=== PATIENT | male | born 1975 ===

== ENCOUNTER 2023-04-09 14:54 | Inpatient (IN) | payer SELFPAY ==
[~2023-04-09] VITALS: Ht 170.2 cm; Wt 82.6 kg
[2023-04-09] MEDS ORDERED: OLANZapine 5 MG RAPDIS TABLET PO PRN (16:15)
[2023-04-09] MEDS ORDERED: ZOLPIDEM TARTRATE 10 MG TABLET PO PRN (16:15)
[2023-04-09] MEDS ORDERED: LORazepam 2 MG TABLET PO PRN (16:15)
[2023-04-09 18:20] LABS: LYMPHOCYTES # (AUTO) 0.4 K/uL (1.0-4.8); MONOCYTES # (AUTO) 0.2 K/uL (0.1-1.0); NEUTROPHILS # (AUTO) 2.6 K/uL (1.8-7.7); WHITE BLOOD COUNT (AUTO) 3.3 K/uL (4.5-11.0)
[2023-04-09 18:26] LABS: EOSINOPHILS % (AUTO) 0.9 % (1.0-6.0); HEMOGLOBIN 11.6 g/dL (13.5-17.5); LYMPHOCYTES % (AUTO) 10.9 % (22.0-44.0); MEAN CORPUSCULAR HEMOGLOBIN 26.8 pg (26.0-34.0); MEAN CORPUSCULAR VOLUME 81 fL (80-100); MONOCYTES % (AUTO) 6.6 % (2.0-9.0); NEUTROPHILS % (AUTO) 80.6 % (40.0-70.0); RED BLOOD CELL COUNT(AUTO) 4.31 MIL/uL (4.50-5.90); RED CELL DISTRIBUTION WIDTH 20.6 % (11.5-14.5)
[2023-04-09 18:29] LABS: ANION GAP 11 mmol/L (8-16); CARBON DIOXIDE 22 mmol/L (22-29); CHLORIDE 107 mmol/L (98-107); CREATININE 1.03 mg/dL (0.60-1.30); GLOMERULAR FILTR. RATE CALC > 60 mL/min (>60); GLUCOSE,RANDOM 176 mg/dL (70-110); POTASSIUM 3.7 mmol/L (3.5-5.1); SODIUM SERUM 140 mmol/L (136-145); UREA NITROGEN, BLOOD 14 mg/dL (7-18)
[2023-04-09 18:35] LABS: ALANINE AMINOTRANSFERASE 73 U/L (12-78); ALBUMIN 3.7 g/dL (3.4-5.0); ALCOHOL, BLOOD (SERUM) < 3 mg/dL (0-10); ALKALINE PHOSPHATASE 206 U/L (46-116); ASPARTATE AMINOTRANSFERASE 94 U/L (15-37); TOTAL PROTEIN, SERUM 8.2 g/dL (6.4-8.2)
[2023-04-09 18:48] LABS: PLATELET COUNT (AUTO) 89 K/uL (150-450)
[2023-04-09 19:04] LABS: COVID AG,FIA SOURCE NASAL SWAB
[2023-04-09] MEDS: TraMADol HCL 50 MG TABLET PO ONE ×2 (19:04→19:40)
[2023-04-09 19:12] LABS: APPEARANCE,URINE CLEAR (CLEAR); BILIRUBIN,URINE NEGATIVE (NEGATIVE); COLOR,URINE YELLOW (YELLOW); GLUCOSE, URINE (UA) 70-100 mg/dL (NEGATIVE); KETONES,URINE NEGATIVE (NEGATIVE); LEUKOCYTE ESTERASE ,URINE NEGATIVE (NEGATIVE); NITRATE,URINE NEGATIVE (NEGATIVE); OCCULT BLOOD,URINE MODERATE (NEGATIVE); PROTEIN,URINE 100-200,SEE CONFIRM mg/dL (NEGATIVE); SPECIFIC GRAVITIY, URINE 1.026 (1.003-1.030)
[2023-04-09 19:17] LABS: ALCOHOL, URINE DRUG SCREEN NEGATIVE (NEGATIVE); AMPHET/METH SCREEN,URINE POSITIVE (NEGATIVE); BARBITURATE SCREEN, URINE NEGATIVE (NEGATIVE); BENZODIAZEPINES SCREEN,URINE NEGATIVE (NEGATIVE); CANNABINOID SCREEN,URINE NEGATIVE (NEGATIVE); COCAINE SCREEN,URINE NEGATIVE (NEGATIVE); METHADONE SCREEN, URINE NEGATIVE (NEGATIVE); OPIATE SCREEN,URINE NEGATIVE (NEGATIVE); PHENCYCLIDINE SCREEN,URINE NEGATIVE (NEGATIVE)
[2023-04-09 19:25] LABS: SULFOSALICYLIC ACID,URINE 1+ (Negative)
[2023-04-09 19:26] LABS: BACTERIA,URINE None Seen /HPF (None Seen); SQUAMOUS EPITHELIAL CELL,UR Rare /LPF (None Seen); WBC,URINE 0-2 /HPF (0-5)
[2023-04-09 19:34] LABS: SARS-COV2 (COVID) ANTIGEN,FIA Negative (Negative)
[2023-04-10 02:00] VITALS: BP 136/88; PULSE 98; RESP 18; TEMP 97.9
[2023-04-10] MEDS ORDERED: ACETAMINOPHEN 325 MG TABLET PO PRN (02:00)
[2023-04-10] MEDS ORDERED: MAG HYDROX/ALUMINUM HYD/SIMETH ES 30 ML SUSPENSION UDCUP PO PRN (02:00)
[2023-04-10] MEDS ORDERED: TUBERCULIN, PURIFIED PROTEIN DERIVATIVE 5 TU/0.1 ML SYRINGE ID ONE (02:00)
[2023-04-10] MEDS ORDERED: PROMETHAZINE HCL 25 MG TABLET PO PRN (02:00)
[2023-04-10] MEDS ORDERED: HydrOXYzine PAMOATE 50 MG CAPSULE PO PRN ×2 (02:00)
[2023-04-10] MEDS ORDERED: GuaiFENesin/D-METHORPHAN [SUGAR-FREE] 200-20MG/10 ML SYRUP UDCUP PO PRN (02:00)
[2023-04-10] MEDS ORDERED: MAGNESIUM HYDROXIDE SUSPENSION 30 ML UDCUP PO PRN (02:00)
[2023-04-10] MEDS ORDERED: LORazepam 2 MG TABLET PO PRN (02:00)
[2023-04-10] MEDS ORDERED: LOPERAMIDE HCL 2 MG CAPSULE PO PRN (02:00)
[2023-04-10 02:13] VITALS: BP 136/88; PULSE 98; RESP 18; TEMP 97.9
[2023-04-10 03:00] VITALS: BP_SYST 114; BP_SYST 128; BP_DIAS 61; BP_DIAS 85; PULSE 84; PULSE 90; RESP 17; RESP 18; TEMP 98.2; TEMP 98.4; O2SAT 97; O2SAT 98
[2023-04-10 08:31] VITALS: BP 104/60; PULSE 90; RESP 18; TEMP 98.1; O2SAT 97
[2023-04-10] MEDS ORDERED: CYANOCOBALAMIN 1,000 MCG/ML VIAL IM ONE (09:00)
[2023-04-10] MEDS: FLUoxetine HCL 20 MG CAPSULE PO SCH (09:09)
[2023-04-10] MEDS: MULTIVITAMINS WITH MINERALS, THERAPEUTIC TABLET PO SCH (09:10)
[2023-04-10] MEDS: THIAMINE 100 MG TABLET PO SCH ×2 (09:10→16:11)
[2023-04-10] MEDS: OMEGA-3/DHA/EPA/FISH OIL 1,000 MG CAPSULE PO SCH (09:10)
[2023-04-10] MEDS: NALTREXONE HCL 50 MG TABLET PO SCH (09:10)
[2023-04-10] MEDS: FOLIC ACID 1 MG TABLET PO SCH (09:10)
[2023-04-10 21:03] VITALS: BP 116/70; PULSE 92; RESP 18; TEMP 97.7; O2SAT 97
[2023-04-10] MEDS: MELATONIN 5 MG TABLET PO SCH (21:45)
[2023-04-11] MEDS ORDERED: LORazepam 2 MG TABLET PO PRN (07:00)
[2023-04-11 08:00] LABS: HEMOGLOBIN A1C 4.9 % (3.8-5.6)
[2023-04-11] MEDS: FLUoxetine HCL 20 MG CAPSULE PO SCH (08:06)
[2023-04-11] MEDS: MULTIVITAMINS WITH MINERALS, THERAPEUTIC TABLET PO SCH (08:06)
[2023-04-11] MEDS: FOLIC ACID 1 MG TABLET PO SCH (08:06)
[2023-04-11] MEDS: NALTREXONE HCL 50 MG TABLET PO SCH (08:06)
[2023-04-11] MEDS: LORazepam 2 MG TABLET PO SCH ×3 (08:06→16:42)
[2023-04-11] MEDS: OMEGA-3/DHA/EPA/FISH OIL 1,000 MG CAPSULE PO SCH (08:06)
[2023-04-11] MEDS: THIAMINE 100 MG TABLET PO SCH ×2 (08:07→16:42)
[2023-04-11 08:14] VITALS: BP 124/81; PULSE 81; RESP 18; TEMP 98.2; O2SAT 98
[2023-04-11 08:19] LABS: CHOL/HDL RATIO 2.2 (4.2-7.3); FREE T4 (FREE THYROXINE) 0.95 ng/dL (0.76-1.46); THYROID STIMULATING HORMONE 0.97 uIU/mL (0.36-3.74)
[2023-04-11] MEDS ORDERED: OMEG-135 PO (20:28)
[2023-04-11] MEDS ORDERED: FLUO20CA36 PO (20:28)
[2023-04-11] MEDS ORDERED: MELA5TAB40 PO (20:28)
[2023-04-11] MEDS ORDERED: NALT50TA33 PO (20:28)
[2023-04-11] MEDS: MELATONIN 5 MG TABLET PO SCH (20:39)
[2023-04-11 20:57] VITALS: BP 121/70; PULSE 76; RESP 16; TEMP 98.1
[2023-04-12 08:33] VITALS: BP 115/72; PULSE 72; RESP 17; TEMP 97.9; O2SAT 99
[2023-04-12] MEDS: FLUoxetine HCL 20 MG CAPSULE PO SCH (08:49)
[2023-04-12] MEDS: THIAMINE 100 MG TABLET PO SCH (08:49)
[2023-04-12] MEDS: MULTIVITAMINS WITH MINERALS, THERAPEUTIC TABLET PO SCH (08:49)
[2023-04-12] MEDS: NALTREXONE HCL 50 MG TABLET PO SCH (08:49)
[2023-04-12] MEDS: FOLIC ACID 1 MG TABLET PO SCH (08:49)
[2023-04-12] MEDS: OMEGA-3/DHA/EPA/FISH OIL 1,000 MG CAPSULE PO SCH (08:49)
[2023-04-13] MEDS ORDERED: LORazepam 1 MG TABLET PO PRN (07:00)
[2023-04-13] MEDS ORDERED: LORazepam 1 MG TABLET PO SCH (09:00)
[2023-04-14] MEDS ORDERED: LORazepam 1 MG TABLET PO PRN (07:00)
== END 2023-04-12 12:00 | disposition home or self-care (01) | DRG 885 ==
LOC: EMS 14:55 → B2S 04-10 00:06
PROVIDERS: ADMIT Psychiatry & Neurology Psychiatry; ATTEND Psychiatry & Neurology Psychiatry
PROC: GZHZZZZ Group Psychotherapy (ICD-10-PCS; principal; 2023-04-10)
PROC: GZ51ZZZ Individual Psychotherapy, Behavioral (ICD-10-PCS; 2023-04-10)
DX: F33.2 Major depressive disorder, recurrent severe without psychotic features (principal); R45.851 Suicidal ideations; F15.10 Other stimulant abuse, uncomplicated; F17.210 Nicotine dependence, cigarettes, uncomplicated; Z20.822 Contact with and (suspected) exposure to COVID-19; Z79.899 Other long term (current) drug therapy
CPT/HCPCS: 80053; 80061; 80307; 81001; 81002; 83036; 84439; 84443; 85025; 86592; 99285; G0480; J3420; Q9967